=== PATIENT | female | born 1960 | race African-American/Black ===

== ENCOUNTER 2017-03-04 03:49 | Emergency (ER) | payer OTHER ==
[~2017-03-04] VITALS: Ht 172.7 cm; Wt 64.0 kg
[~2017-03-04 03:49] MED LIST: ALBU8.5H IH; LEVE500T53 PO; METHI10 PO; NACL1 PO; PROP40TA7 PO
[2017-03-04 04:02] LABS: GLUCOSE,POINT OF CARE 87 MG/DL (70-110)
[2017-03-04] MEDS ORDERED: SODIUM CHLORIDE 0.9% 1,000 ML IV ONE (04:30)
[2017-03-04 05:10] LABS: ANION GAP 7 mmol/L (8-16); BASOPHILS # (AUTO) 0.05 K/uL (0.00-0.20); CALCIUM, TOTAL 8.2 mg/dL (8.8-10.5); CARBON DIOXIDE 27 mmol/L (22-29); CHLORIDE 100 mmol/L (98-107); CREATININE 0.76 mg/dL (0.60-1.30); EOSINOPHILS # (AUTO) 0.43 K/uL (0.00-0.70); GLOMERULAR FILTR. RATE CALC > 60 mL/min (>60); HEMATOCRIT 28.2 % (36-46); HEMOGLOBIN 9.4 g/dL (12.0-16.0); LYMPHOCYTES # (AUTO) 1.8 K/uL (1.0-4.8); MEAN CORPUSCULAR HEMOGLOBIN 29.3 pg (26.0-34.0); MEAN CORPUSCULAR HGB CONC 33.4 G/dL (31.0-37.0); MEAN CORPUSCULAR VOLUME 88 fL (80-100); MONOCYTES # (AUTO) 0.4 K/uL (0.1-1.0); MONOCYTES % (AUTO) 8.4 % (2.0-9.0); NEUTROPHILS # (AUTO) 2.3 K/uL (1.8-7.7); NEUTROPHILS % (AUTO) 46.9 % (40.0-70.0); PLATELET COUNT (AUTO) 149 K/uL (150-450); POTASSIUM 3.7 mmol/L (3.5-5.1); RED BLOOD CELL COUNT(AUTO) 3.22 MIL/uL (4.00-5.20); RED CELL DISTRIBUTION WIDTH 16.6 % (11.5-14.5); SODIUM SERUM 134 mmol/L (136-145); UREA NITROGEN, BLOOD 12 mg/dL (7-18)
[2017-03-04 05:16] LABS: ALANINE AMINOTRANSFERASE 16 U/L (12-78); ALBUMIN 2.7 g/dL (3.4-5.0); ASPARTATE AMINOTRANSFERASE 27 U/L (15-37); BILIRUBIN,TOTAL 0.3 mg/dL (0.1-1.0); TOTAL PROTEIN, SERUM 7.3 g/dL (6.4-8.2)
[2017-03-04] MEDS ORDERED: LevETIRAcetam 500 MG TABLET PO ONE (05:30)
[2017-03-04 05:37] VITALS: BP 138/77
== END 2017-03-04 05:41 | disposition home or self-care (01) ==
LOC: EMS 03:50
DX: G40.909 Epilepsy, unspecified, not intractable, without status epilepticus (principal); E11.9 Type 2 diabetes mellitus without complications; I10 Essential (primary) hypertension
CPT/HCPCS: 36415; 80053; 82948; 82962; 84703; 85025; 96360; 99285; J7030